=== PATIENT | female | born 1960 | race Caucasian/White ===

== ENCOUNTER 2016-11-14 13:21 | Emergency (ER) | payer OTHER ==
[~2016-11-14 13:21] MED LIST: ALBUTEROL2.5 MG/3 M IH; ASPIRIN EC81 MG PO; CARAFATE1 GM PO; CARDIZEM CD180 MG PO; COZAAR50 MG PO; DIFLUCAN150 MG PO; GLUCOPHAGE500 MG PO; HYDROCHLOROTHIA50 MG PO; HYDROCODON-ACE1 EAC6 PO; K-DUR20 MEQ PO; LEVAQUIN500 MG PO; LIDODERM700 MG TD; LIPITOR40 MG PO; NEURONTIN400 MG PO; NICODERM 7MG PAT1 EA TD; PROTONIX40 MG PO; SYMBICORT 16060 PUFF INH; TUDORZA PRESS400 MCG IH; UREA 40% NAIL1 EACH TP
== END 2016-11-14 15:20 | disposition home or self-care (01) ==
LOC: ER 13:21
DX: J20.9 Acute bronchitis, unspecified (principal); H66.91 Otitis media, unspecified, right ear; F17.210 Nicotine dependence, cigarettes, uncomplicated; Z88.1 Allergy status to other antibiotic agents; Z79.899 Other long term (current) drug therapy
CPT/HCPCS: 87400; 94664; 96372; 99284-25; J2930